=== PATIENT | male | born 1970 | race Caucasian/White ===

== ENCOUNTER → 2017-02-17 | Outpatient (CLI) | payer BC ==
[2017-02-17 12:15] LABS: ALBUMIN SERUM 4.6 g/dL (3.5-5.0); BILIRUBIN, DIRECT 0.1 mg/dL (0.0-0.2); BILIRUBIN,INDIRECT 0.6 mg/dL (0.0-0.9); BILIRUBIN,TOTAL 0.7 mg/dL (0.2-2.0); PROTEIN TOTAL SERUM 7.2 g/dL (6.0-8.3)
== END | disposition home or self-care (01) ==
LOC: CLAB 11:25
PROVIDERS: Specialist
DX: L30.1 Dyshidrosis [pompholyx] (principal); D18.01 Hemangioma of skin and subcutaneous tissue; D22.61 Melanocytic nevi of right upper limb, including shoulder; D22.5 Melanocytic nevi of trunk; B35.3 Tinea pedis; L91.8 Other hypertrophic disorders of the skin; D48.5 Neoplasm of uncertain behavior of skin
CPT/HCPCS: 36415; 80076